=== PATIENT | female | born 1990 | race Caucasian/White ===

== ENCOUNTER 2017-11-20 13:25 | Inpatient (IN) | payer OTHER ==
[2017-11-20 14:35] LABS: ADD MAN DIFF? NO
[2017-11-20 14:36] LABS: WHITE BLOOD COUNT 11.7 10^3/ul (4.8-10.8)
[2017-11-20 14:36] LABS: BASOPHILS % 0.2 % (0.0-2.0); EOSINOPHILS # 0.3 10^3/ul (0.0-0.5); EOSINOPHILS % 2.2 % (0.0-7.0); HEMATOCRIT 31.6 % (37.0-47.0); HEMOGLOBIN 10.7 g/dl (12.0-16.0); LYMPHOCYTES # 2.9 10^3/ul (0.8-2.9); LYMPHOCYTES % 24.6 % (15.0-51.0); MEAN CORPUSCULAR HEMOGLOBIN 29.6 pg (29.0-33.0); MEAN CORPUSCULAR HGB CONC 33.9 g/dl (32.0-37.0); MEAN CORPUSCULAR VOLUME 87.3 fl (82.0-101.0); MEAN PLATELET VOLUME 9.7 fl (7.4-10.4); MONOCYTE # 0.6 10^3/ul (0.3-0.9); NEUTROPHIL # 7.9 10^3/ul (1.6-7.5); NEUTROPHILS % 67.3 % (39.0-77.0); PLATELET COUNT 324 10^3/UL (140-415); RED BLOOD COUNT 3.62 10^6/ul (4.20-5.40); RED CELL DISTRIBUTION WIDTH 13.3 % (11.5-14.5)
[2017-11-20 14:43] LABS: ADD UMIC YES; UR ASCORBIC ACID NEGATIVE (NEGATIVE); UR BILIRUBIN (Dip) NEGATIVE (NEGATIVE); UR BLOOD (Dip) 1+ mg/dL (NEGATIVE); UR CLARITY SLIGHTLY CLOUDY (CLEAR); UR COLOR YELLOW (YELLOW); UR GLUCOSE (Dip) NEGATIVE (NEGATIVE); UR KETONES (Dip) TRACE mg/dL (NEGATIVE); UR LEUKOCYTE ESTERASE (Dip) NEGATIVE Leu/ul (NEGATIVE); UR MUCUS MODERATE /HPF (NONE SEEN); UR NITRITE (Dip) NEGATIVE (NEGATIVE); UR RBC 4 /HPF (0-5); UR SPECIFIC GRAVITY (Dip) 1.024 (1.003-1.030); UR SQUAMOUS EPITHELIAL CELL FEW /HPF (FEW); UR TOTAL PROTEIN (Dip) 3+ mg/dl (NEGATIVE); UR UROBILINOGEN (Dip) NEGATIVE (NEGATIVE); UR WBC 7 /HPF (0-5)
[2017-11-20 14:55] LABS: INR 0.86; PROTIME 11.8 Sec (11.9-14.9); PT RATIO 0.9
[2017-11-20 14:56] LABS: ALANINE AMINOTRANSFERASE 36 IU/L (13-69); ALBUMIN 3.1 g/dl (3.3-4.9); ALBUMIN/GLOBULIN RATIO 0.91; ALKALINE PHOSPHATASE 95 IU/L (42-121); ANION GAP 12 (8-16); ASPARTATE AMINO TRANSFERASE 22 IU/L (15-46); BILIRUBIN,INDIRECT 0.3 mg/dl (0-1.1); BILIRUBIN,TOTAL 0.3 mg/dl (0.2-1.3); BLOOD UREA NITROGEN 13 mg/dl (7-20); CARBON DIOXIDE 20 mmol/L (21-31); CHLORIDE 109 mmol/L (97-110); CREATININE 0.66 mg/dl (0.44-1.00); GLUCOSE 119 mg/dl (70-220); PARTIAL THROMBOPLASTIN TIME 26.3 Sec (25.0-35.0); POTASSIUM 4.1 mmol/L (3.5-5.1); SODIUM 137 mmol/L (135-144); TOTAL PROTEIN 6.5 g/dl (6.1-8.1)
[2017-11-20] MEDS ORDERED: CA GLUCONATE (GM) 10% 10ML INJ IV (16:00)
[2017-11-20] MEDS: LABETALOL 200 MG TAB PO ×3 (16:25→22:26)
[2017-11-20] MEDS: BETAMET NA PHOS/AC(6 MG/ML) 5ML INJ IM (16:26)
[2017-11-20] MEDS ORDERED: GLUCOSE GEL 15 GRAM TUBE BUCCAL (16:30)
[2017-11-20] MEDS ORDERED: GLUCOSE GEL 15 GRAM TUBE PO ×2 (16:30)
[2017-11-20] MEDS ORDERED: DEXTROSE 50% 50 ML SYRINGE IV ×2 (16:30)
[2017-11-20] MEDS ORDERED: GLUCAGON 1 MG INJ IM (16:30)
[2017-11-20] MEDS: LACTATED RINGER'S 1,000 ML IV (17:31)
[2017-11-20] MEDS: MAGNESIUM SULFATE 4 GM/100 ML 100 ML IV (17:39)
[2017-11-20] MEDS: MAGNESIUM SULFATE 20 GM/500 ML 500 ML IV (18:09)
[2017-11-20] MEDS: NIFEdipine (XL) 30 MG TAB PO (20:58)
[2017-11-20] MEDS: ACCU-CHEK XX (21:09)
[2017-11-20] MEDS: INSULIN ASPART [NOVOLOG] 3 ML PEN SC (21:27)
[2017-11-20] MEDS: LABETALOL HCL 20MG INJ IV ×3 (21:31)
[2017-11-21 01:04] LABS: MAGNESIUM 4.4 mg/dl (1.7-2.5)
[2017-11-21] MEDS: LABETALOL 200 MG TAB PO ×4 (04:02→22:04)
[2017-11-21] MEDS: MAGNESIUM SULFATE 20 GM/500 ML 500 ML IV (04:06)
[2017-11-21] MEDS: LACTATED RINGER'S 1,000 ML IV ×2 (06:30→18:38)
[2017-11-21 07:19] LABS: ADD MAN DIFF? NO
[2017-11-21 07:28] LABS: MAGNESIUM 4.9 mg/dl (1.7-2.5)
[2017-11-21 07:34] LABS: BASOPHILS % 0.2 % (0.0-2.0); HEMATOCRIT 32.1 % (37.0-47.0); HEMOGLOBIN 10.9 g/dl (12.0-16.0); LYMPHOCYTES # 1.8 10^3/ul (0.8-2.9); LYMPHOCYTES % 12.5 % (15.0-51.0); MEAN CORPUSCULAR HEMOGLOBIN 29.8 pg (29.0-33.0); MEAN CORPUSCULAR VOLUME 87.7 fl (82.0-101.0); MONOCYTE # 0.3 10^3/ul (0.3-0.9); MONOCYTES % 1.9 % (0.0-11.0); NEUTROPHIL # 12.1 10^3/ul (1.6-7.5); PLATELET COUNT 331 10^3/UL (140-415); RED BLOOD COUNT 3.66 10^6/ul (4.20-5.40); RED CELL DISTRIBUTION WIDTH 13.5 % (11.5-14.5)
[2017-11-21 07:34] LABS: WHITE BLOOD COUNT 14.4 10^3/ul (4.8-10.8)
[2017-11-21] MEDS: ACCU-CHEK XX ×4 (08:00→20:29)
[2017-11-21 08:29] LABS: ALANINE AMINOTRANSFERASE 32 IU/L (13-69); ALBUMIN 3.3 g/dl (3.3-4.9); ALBUMIN/GLOBULIN RATIO 1.03; ALKALINE PHOSPHATASE 118 IU/L (42-121); ANION GAP 15 (8-16); ASPARTATE AMINO TRANSFERASE 25 IU/L (15-46); BILIRUBIN,INDIRECT 0.2 mg/dl (0-1.1); BILIRUBIN,TOTAL 0.2 mg/dl (0.2-1.3); BLOOD UREA NITROGEN 11 mg/dl (7-20); CARBON DIOXIDE 20 mmol/L (21-31); CHLORIDE 105 mmol/L (97-110); CREATININE 0.52 mg/dl (0.44-1.00); GLUCOSE 129 mg/dl (70-220); POTASSIUM 4.2 mmol/L (3.5-5.1); SODIUM 136 mmol/L (135-144); TOTAL PROTEIN 6.5 g/dl (6.1-8.1)
[2017-11-21] MEDS: ACETAMINOPHEN 325 MG TAB PO (10:05)
[2017-11-21] MEDS: BETAMET NA PHOS/AC(6 MG/ML) 5ML INJ IM (15:47)
[2017-11-21 16:09] LABS: COLLECTION PERIOD 24 hrs
[2017-11-21 16:44] LABS: VOLUME 3900 mls
[2017-11-21 16:45] LABS: COLLECTION PERIOD 24 hrs; CREATININE CLEARANCE 219.2 mls/min (84.0-162.0); CREATININE,URINE RANDOM 53.41 mg/dl (20-320); SCRET 0.66 mg/dl (0.44-1.00); VOLUME 3900 ml/24hrs
[2017-11-21] MEDS: INSULIN ASPART [NOVOLOG] 3 ML PEN SC (20:21)
[2017-11-21] MEDS: NIFEdipine (XL) 30 MG TAB PO (21:21)
[2017-11-22] MEDS: LABETALOL 200 MG TAB PO ×5 (04:06→22:07)
[2017-11-22] MEDS: ACCU-CHEK XX ×4 (06:00→20:00)
[2017-11-22] MEDS: LACTATED RINGER'S 1,000 ML IV ×2 (07:35→20:15)
[2017-11-22] MEDS: INSULIN ASPART [NOVOLOG] 3 ML PEN SC (15:08)
[2017-11-22] MEDS: NIFEdipine (XL) 30 MG TAB PO (21:00)
[2017-11-23] MEDS: LABETALOL 200 MG TAB PO ×4 (04:16→23:51)
[2017-11-23] MEDS: LACTATED RINGER'S 1,000 ML IV (09:13)
[2017-11-23] MEDS: ACCU-CHEK XX ×4 (09:35→20:15)
[2017-11-23] MEDS: NIFEdipine (XL) 30 MG TAB PO ×2 (11:29→21:22)
[2017-11-24] MEDS: LABETALOL 200 MG TAB PO ×4 (06:08→23:57)
[2017-11-24] MEDS: ACCU-CHEK XX ×4 (08:28→15:00)
[2017-11-24] MEDS: NIFEdipine (XL) 30 MG TAB PO ×2 (09:11→21:10)
[2017-11-24] MEDS: PRENATAL VITAMIN PO (11:47)
[2017-11-24] MEDS: DOCUSATE SODIUM 100 MG CAP PO ×2 (15:07→21:00)
[2017-11-24] MEDS: FERROUS SULFATE (EC) 325 MG TAB PO (21:00)
[2017-11-25] MEDS: ACCU-CHEK XX ×4 (06:00→19:59)
[2017-11-25] MEDS: LABETALOL 200 MG TAB PO ×3 (06:02→18:04)
[2017-11-25] MEDS: DOCUSATE SODIUM 100 MG CAP PO ×3 (09:25→21:18)
[2017-11-25] MEDS: FERROUS SULFATE (EC) 325 MG TAB PO ×2 (09:26→21:18)
[2017-11-25] MEDS: PRENATAL VITAMIN PO (09:26)
[2017-11-25] MEDS: NIFEdipine (XL) 30 MG TAB PO ×2 (09:26→21:18)
[2017-11-26] MEDS: LABETALOL 200 MG TAB PO ×2 (00:25→05:37)
[2017-11-26] MEDS: FERROUS SULFATE (EC) 325 MG TAB PO (08:59)
[2017-11-26] MEDS: PRENATAL VITAMIN PO (08:59)
[2017-11-26] MEDS: DOCUSATE SODIUM 100 MG CAP PO (09:00)
[2017-11-26] MEDS: NIFEdipine (XL) 30 MG TAB PO (09:21)
== END 2017-11-26 10:35 | disposition home or self-care (01) | DRG 782 ==
LOC: OBT 13:25 → L-D 13:25 → OBT 14:00 → L-D 14:00
DX: O13.2 Gestational [pregnancy-induced] hypertension without significant proteinuria, second trimester (principal); Z3A.27 27 weeks gestation of pregnancy
CPT/HCPCS: 76815; 76820; 80053; 81001; 82575; 82962; 83735; 84156; 84560; 85025; 85384; 85610; 85730

== ENCOUNTER 2017-12-05 23:07 | Inpatient (IN) | payer OTHER ==
[2017-12-05] MEDS: LACTATED RINGER'S 1,000 ML IV (23:10)
[2017-12-06] MEDS ORDERED: ACETAMINOPHEN 325 MG TAB PO (00:30)
[2017-12-06 00:53] LABS: ADD MAN DIFF? NO
[2017-12-06 00:55] LABS: BASOPHIL # 0.1 10^3/ul (0.0-0.1); BASOPHILS % 0.4 % (0.0-2.0); EOSINOPHILS # 0.3 10^3/ul (0.0-0.5); EOSINOPHILS % 1.8 % (0.0-7.0); HEMATOCRIT 32.2 % (37.0-47.0); HEMOGLOBIN 10.9 g/dl (12.0-16.0); LYMPHOCYTES # 3.2 10^3/ul (0.8-2.9); LYMPHOCYTES % 20.6 % (15.0-51.0); MEAN CORPUSCULAR HEMOGLOBIN 29.6 pg (29.0-33.0); MEAN CORPUSCULAR HGB CONC 33.9 g/dl (32.0-37.0); MEAN CORPUSCULAR VOLUME 87.5 fl (82.0-101.0); MEAN PLATELET VOLUME 10.1 fl (7.4-10.4); MONOCYTE # 1.2 10^3/ul (0.3-0.9); MONOCYTES % 7.9 % (0.0-11.0); NEUTROPHIL # 10.8 10^3/ul (1.6-7.5); NEUTROPHILS % 68.5 % (39.0-77.0); PLATELET COUNT 248 10^3/UL (140-415); RED BLOOD COUNT 3.68 10^6/ul (4.20-5.40); RED CELL DISTRIBUTION WIDTH 13.5 % (11.5-14.5)
[2017-12-06 00:55] LABS: WHITE BLOOD COUNT 15.8 10^3/ul (4.8-10.8)
[2017-12-06 01:20] LABS: ADD UMIC YES; ALANINE AMINOTRANSFERASE 61 IU/L (13-69); ALBUMIN 2.6 g/dl (3.3-4.9); ALBUMIN/GLOBULIN RATIO 0.81; ALKALINE PHOSPHATASE 133 IU/L (42-121); ANION GAP 7 (8-16); ASPARTATE AMINO TRANSFERASE 47 IU/L (15-46); BILIRUBIN,INDIRECT 0.1 mg/dl (0-1.1); BILIRUBIN,TOTAL 0.1 mg/dl (0.2-1.3); BLOOD UREA NITROGEN 20 mg/dl (7-20); CALCIUM 8.6 mg/dl (8.4-10.2); CARBON DIOXIDE 20 mmol/L (21-31); CHLORIDE 113 mmol/L (97-110); CREATININE 0.76 mg/dl (0.44-1.00); GLUCOSE 91 mg/dl (70-220); POTASSIUM 4.2 mmol/L (3.5-5.1); SODIUM 136 mmol/L (135-144); TOTAL PROTEIN 5.8 g/dl (6.1-8.1); UR ASCORBIC ACID NEGATIVE (NEGATIVE); UR BACTERIA FEW /HPF (NONE SEEN); UR BILIRUBIN (Dip) NEGATIVE (NEGATIVE); UR BLOOD (Dip) NEGATIVE (NEGATIVE); UR CLARITY CLOUDY (CLEAR); UR COLOR YELLOW (YELLOW); UR GLUCOSE (Dip) NEGATIVE (NEGATIVE); UR GRANULAR CAST FEW /HPF (NONE SEEN); UR HYALINE CAST FEW /HPF (NONE SEEN); UR KETONES (Dip) NEGATIVE (NEGATIVE); UR LEUKOCYTE ESTERASE (Dip) NEGATIVE Leu/ul (NEGATIVE); UR NITRITE (Dip) NEGATIVE (NEGATIVE); UR RBC 3 /HPF (0-5); UR SPECIFIC GRAVITY (Dip) 1.013 (1.003-1.030); UR SQUAMOUS EPITHELIAL CELL FEW /HPF (FEW); UR TOTAL PROTEIN (Dip) 3+ mg/dl (NEGATIVE); UR UROBILINOGEN (Dip) NEGATIVE (NEGATIVE); UR WBC 12 /HPF (0-5); URIC ACID 7.2 mg/dl (3.1-7.9)
[2017-12-06 01:33] LABS: INR 0.77; PROTIME 10.8 Sec (11.9-14.9); PT RATIO 0.8
[2017-12-06 01:34] LABS: PARTIAL THROMBOPLASTIN TIME 28.4 Sec (25.0-35.0)
[2017-12-06] MEDS: LACTATED RINGER'S 1,000 ML IV ×2 (04:37→09:22)
[2017-12-06] MEDS: LABETALOL 200 MG TAB PO ×3 (09:21→20:19)
[2017-12-06] MEDS: PRENATAL VITAMIN PO (09:21)
[2017-12-06] MEDS: NIFEdipine (XL) 30 MG TAB PO ×3 (09:22→22:17)
[2017-12-06] MEDS: DOCUSATE SODIUM 100 MG CAP PO (20:00)
[2017-12-07] MEDS: LACTATED RINGER'S 1,000 ML IV ×2 (04:04→21:47)
[2017-12-07] MEDS: LABETALOL 200 MG TAB PO ×4 (05:09→23:30)
[2017-12-07 05:34] LABS: COLLECTION PERIOD 24 hrs
[2017-12-07] MEDS: NIFEdipine (XL) 30 MG TAB PO ×3 (06:06→22:00)
[2017-12-07 06:49] LABS: ADD MAN DIFF? NO
[2017-12-07] MEDS ORDERED: OXYTOCIN 30 UNITS/LR 500 ML BAG IV (07:00)
[2017-12-07 07:06] LABS: BASOPHIL # 0.1 10^3/ul (0.0-0.1); BASOPHILS % 0.4 % (0.0-2.0); EOSINOPHILS # 0.2 10^3/ul (0.0-0.5); EOSINOPHILS % 1.7 % (0.0-7.0); HEMATOCRIT 33.3 % (37.0-47.0); HEMOGLOBIN 11.3 g/dl (12.0-16.0); LYMPHOCYTES # 2.7 10^3/ul (0.8-2.9); LYMPHOCYTES % 18.6 % (15.0-51.0); MEAN CORPUSCULAR HEMOGLOBIN 29.8 pg (29.0-33.0); MEAN CORPUSCULAR HGB CONC 33.9 g/dl (32.0-37.0); MEAN CORPUSCULAR VOLUME 87.9 fl (82.0-101.0); MEAN PLATELET VOLUME 9.9 fl (7.4-10.4); MONOCYTES % 7.1 % (0.0-11.0); NEUTROPHIL # 10.2 10^3/ul (1.6-7.5); NEUTROPHILS % 71.4 % (39.0-77.0); PLATELET COUNT 184 10^3/UL (140-415); RED BLOOD COUNT 3.79 10^6/ul (4.20-5.40); RED CELL DISTRIBUTION WIDTH 13.6 % (11.5-14.5)
[2017-12-07 07:06] LABS: WHITE BLOOD COUNT 14.3 10^3/ul (4.8-10.8)
[2017-12-07 07:25] LABS: ALANINE AMINOTRANSFERASE 93 IU/L (13-69); ALBUMIN 2.6 g/dl (3.3-4.9); ALBUMIN/GLOBULIN RATIO 0.86; ALKALINE PHOSPHATASE 136 IU/L (42-121); ANION GAP 9 (8-16); ASPARTATE AMINO TRANSFERASE 75 IU/L (15-46); BILIRUBIN,INDIRECT 0.4 mg/dl (0-1.1); BILIRUBIN,TOTAL 0.4 mg/dl (0.2-1.3); BLOOD UREA NITROGEN 16 mg/dl (7-20); CALCIUM 8.3 mg/dl (8.4-10.2); CARBON DIOXIDE 20 mmol/L (21-31); CHLORIDE 110 mmol/L (97-110); CREATININE 0.67 mg/dl (0.44-1.00); GLUCOSE 80 mg/dl (70-220); POTASSIUM 4.2 mmol/L (3.5-5.1); SODIUM 135 mmol/L (135-144); TOTAL PROTEIN 5.6 g/dl (6.1-8.1)
[2017-12-07 08:06] LABS: COLLECTION PERIOD 24 hrs; SCRET 0.67 mg/dl (0.44-1.00); VOLUME 2500 ml/24hrs; VOLUME 2500 mls
[2017-12-07] MEDS ORDERED: LABETALOL 200 MG TAB PO (09:00)
[2017-12-07] MEDS: DOCUSATE SODIUM 100 MG CAP PO (09:07)
[2017-12-07] MEDS: PRENATAL VITAMIN PO (09:07)
[2017-12-07 11:54] LABS: CREATININE CLEARANCE 180.4 mls/min (84.0-162.0); CREATININE,URINE RANDOM 69.61 mg/dl (20-320)
[2017-12-07] MEDS ORDERED: MAGNESIUM SULFATE 4 GM/100 ML 100 ML (16:59)
[2017-12-07] MEDS ORDERED: CEFAZOLIN 2 GM/50 ML (PMX) 50 ML IVPB (17:05)
[2017-12-07] MEDS: MAGNESIUM SULFATE 4 GM/100 ML 100 ML IV (17:10)
[2017-12-07] MEDS: MAGNESIUM SULFATE 20 GM/500 ML 500 ML IV (17:32)
[2017-12-07] MEDS: CEFAZOLIN 2 GM/50 ML (PMX) 50 ML IVPB (20:00)
[2017-12-07] MEDS ORDERED: BUPIVACAINE 0.75%/DEXT (SPINAL) 2 ML INJ (20:21)
[2017-12-07] MEDS ORDERED: FENTAnyl 50 MCG/ML VIAL (20:21)
[2017-12-07] MEDS ORDERED: morphine SULFATE/PF (10 MG/10 ML) INJ (20:21)
[2017-12-07 20:22] LABS: HEPATITIS B SURFACE ANTIBODY NEGATIVE (NEGATIVE)
[2017-12-07] MEDS ORDERED: PHENYLephrine (100 MCG/ML) 5ML SYG (20:22)
[2017-12-07] MEDS ORDERED: FAMOTIDINE 20 MG INJ (20:35)
[2017-12-07] MEDS ORDERED: ONDANSETRON 4 MG INJ (20:35)
[2017-12-07] MEDS ORDERED: OXYTOCIN 10 UNIT INJ (20:42)
[2017-12-07] MEDS ORDERED: METHYLENE BLUE 1% 10 ML INJ (21:01)
[2017-12-07] MEDS ORDERED: KETOROLAC 30 MG INJ (21:44)
[2017-12-07] MEDS: KETOROLAC 30 MG INJ IV (21:46)
[2017-12-07] MEDS ORDERED: HYDROmorphONE 0.5 MG/0.5 ML SYG IV (22:00)
[2017-12-07] MEDS ORDERED: CARBOPROST 250 MCG INJ IM (22:00)
[2017-12-07] MEDS ORDERED: LANOLIN 7 GM TUBE TOP (22:00)
[2017-12-07] MEDS ORDERED: METHYLERGONOVINE 0.2 MG TAB PO (22:00)
[2017-12-07] MEDS ORDERED: ZOLPIDEM 5 MG TAB PO (22:00)
[2017-12-07] MEDS ORDERED: MISOPROSTOL 200 MCG TAB PR (22:00)
[2017-12-07] MEDS ORDERED: METHYLERGONOVINE 0.2 MG INJ IM (22:00)
[2017-12-07] MEDS ORDERED: NALOXONE (0.4 MG/ML) INJ IV (22:00)
[2017-12-07] MEDS ORDERED: ONDANSETRON 4 MG INJ IV (22:00)
[2017-12-07] MEDS ORDERED: CEFAZOLIN 1 GM/50 ML (PMX) 50 ML IV (22:00)
[2017-12-07] MEDS ORDERED: OXYTOCIN 30 UNITS/LR 500 ML IV (22:00)
[2017-12-07] MEDS: HYDROmorphONE 0.5 MG/0.5 ML SYG IV (22:10)
[2017-12-07] MEDS: OXYTOCIN 30 UNITS/LR 500 ML IV (22:16)
[2017-12-07] MEDS: DIPHENHYDRAMINE 50 MG INJ IV (23:44)
[2017-12-08] MEDS: NIFEdipine (XL) 30 MG TAB PO ×3 (00:47→21:00)
[2017-12-08 01:10] LABS: MAGNESIUM 5.2 mg/dl (1.7-2.5)
[2017-12-08] MEDS: LACTATED RINGER'S 1,000 ML IV ×2 (02:15→06:07)
[2017-12-08] MEDS: CEFAZOLIN 1 GM/50 ML (PMX) 50 ML IVPB (04:42)
[2017-12-08] MEDS: MAGNESIUM SULFATE 20 GM/500 ML 500 ML IV ×2 (04:44→14:39)
[2017-12-08] MEDS: LABETALOL 200 MG TAB PO ×3 (06:00→22:00)
[2017-12-08 07:26] LABS: ADD MAN DIFF? NO
[2017-12-08 07:34] LABS: WHITE BLOOD COUNT 16.3 10^3/ul (4.8-10.8)
[2017-12-08 07:34] LABS: BASOPHIL # 0.1 10^3/ul (0.0-0.1); BASOPHILS % 0.4 % (0.0-2.0); EOSINOPHILS # 0.2 10^3/ul (0.0-0.5); EOSINOPHILS % 1.1 % (0.0-7.0); HEMATOCRIT 33.3 % (37.0-47.0); HEMOGLOBIN 11.2 g/dl (12.0-16.0); LYMPHOCYTES # 2.5 10^3/ul (0.8-2.9); LYMPHOCYTES % 15.3 % (15.0-51.0); MEAN CORPUSCULAR HEMOGLOBIN 29.8 pg (29.0-33.0); MEAN CORPUSCULAR HGB CONC 33.6 g/dl (32.0-37.0); MEAN CORPUSCULAR VOLUME 88.6 fl (82.0-101.0); MEAN PLATELET VOLUME 10.1 fl (7.4-10.4); MONOCYTES % 6.2 % (0.0-11.0); NEUTROPHIL # 12.5 10^3/ul (1.6-7.5); NEUTROPHILS % 76.4 % (39.0-77.0); PLATELET COUNT 159 10^3/UL (140-415); RED BLOOD COUNT 3.76 10^6/ul (4.20-5.40); RED CELL DISTRIBUTION WIDTH 13.6 % (11.5-14.5)
[2017-12-08 07:50] LABS: ANION GAP 9 (8-16); BLOOD UREA NITROGEN 14 mg/dl (7-20); CALCIUM 7.9 mg/dl (8.4-10.2); CARBON DIOXIDE 23 mmol/L (21-31); CHLORIDE 107 mmol/L (97-110); CREATININE 0.73 mg/dl (0.44-1.00); GLUCOSE 76 mg/dl (70-220); POTASSIUM 4.4 mmol/L (3.5-5.1); SODIUM 135 mmol/L (135-144)
[2017-12-08 07:56] LABS: MAGNESIUM 5.4 mg/dl (1.7-2.5)
[2017-12-08] MEDS: DOCUSATE SODIUM 100 MG CAP PO (09:03)
[2017-12-08] MEDS: PRENATAL VITAMIN PO (09:03)
[2017-12-08] MEDS: SENNA/DOCUSATE NA (8.6MG/50MG) TAB PO ×2 (09:03→21:32)
[2017-12-08 13:41] LABS: MAGNESIUM 5.5 mg/dl (1.7-2.5)
[2017-12-08] MEDS: KETOROLAC 30 MG INJ IV (14:37)
[2017-12-08 15:31] LABS: RAPID PLASMA REAGIN REACTIVE (NR)
[2017-12-08] MEDS: ACETAMINOPHEN 325 MG TAB PO (15:34)
[2017-12-08 16:42] LABS: ADD UMIC YES; UR ASCORBIC ACID NEGATIVE (NEGATIVE); UR BACTERIA FEW /HPF (NONE SEEN); UR BILIRUBIN (Dip) NEGATIVE (NEGATIVE); UR BLOOD (Dip) 2+ mg/dL (NEGATIVE); UR CLARITY CLEAR (CLEAR); UR COLOR YELLOW (YELLOW); UR GLUCOSE (Dip) NEGATIVE (NEGATIVE); UR KETONES (Dip) NEGATIVE (NEGATIVE); UR LEUKOCYTE ESTERASE (Dip) NEGATIVE Leu/ul (NEGATIVE); UR MUCUS FEW /HPF (NONE SEEN); UR NITRITE (Dip) NEGATIVE (NEGATIVE); UR RBC 3 /HPF (0-5); UR SPECIFIC GRAVITY (Dip) 1.011 (1.003-1.030); UR TOTAL PROTEIN (Dip) 2+ mg/dl (NEGATIVE); UR UROBILINOGEN (Dip) NEGATIVE (NEGATIVE); UR WBC 3 /HPF (0-5)
[2017-12-08 18:36] LABS: MAGNESIUM 5.7 mg/dl (1.7-2.5)
[2017-12-08] MEDS: HYDROCODONE/APAP (5/325) TAB PO (21:43)
[2017-12-08] MEDS ORDERED: HYDROCODONE/APAP (5/325) TAB PO (22:00)
[2017-12-09] MEDS: HYDROCODONE/APAP (5/325) TAB PO ×5 (01:25→21:00)
[2017-12-09] MEDS: IBUPROFEN 800 MG TAB PO ×2 (05:33→23:47)
[2017-12-09] MEDS: LABETALOL 200 MG TAB PO ×3 (06:00→21:55)
[2017-12-09] MEDS: DOCUSATE SODIUM 100 MG CAP PO (08:25)
[2017-12-09] MEDS: PRENATAL VITAMIN PO (08:26)
[2017-12-09] MEDS: SENNA/DOCUSATE NA (8.6MG/50MG) TAB PO ×2 (08:26→20:59)
[2017-12-09] MEDS: NIFEdipine (XL) 30 MG TAB PO ×2 (08:28→20:59)
[2017-12-10] MEDS: LACTATED RINGER'S 1,000 ML IV ×2 (07:23→21:12)
[2017-12-10] MEDS: LABETALOL 200 MG TAB PO ×3 (07:34→22:01)
[2017-12-10] MEDS: HYDROCODONE/APAP (5/325) TAB PO ×3 (07:44→21:10)
[2017-12-10] MEDS: PRENATAL VITAMIN PO (08:34)
[2017-12-10] MEDS: DOCUSATE SODIUM 100 MG CAP PO (08:34)
[2017-12-10] MEDS: SENNA/DOCUSATE NA (8.6MG/50MG) TAB PO ×2 (08:34→21:05)
[2017-12-10] MEDS: DIPHTH/TET/ACEL PERTUSS (ADULT) 0.5 ML VIAL IM* (08:35)
[2017-12-10] MEDS: NIFEdipine (XL) 30 MG TAB PO ×3 (08:35→21:05)
[2017-12-10 08:58] LABS: ADD MAN DIFF? NO
[2017-12-10 09:01] LABS: WHITE BLOOD COUNT 16.8 10^3/ul (4.8-10.8)
[2017-12-10 09:01] LABS: BASOPHIL # 0.1 10^3/ul (0.0-0.1); BASOPHILS % 0.3 % (0.0-2.0); EOSINOPHILS # 0.4 10^3/ul (0.0-0.5); EOSINOPHILS % 2.1 % (0.0-7.0); HEMATOCRIT 28.8 % (37.0-47.0); HEMOGLOBIN 9.5 g/dl (12.0-16.0); LYMPHOCYTES # 2.8 10^3/ul (0.8-2.9); LYMPHOCYTES % 16.7 % (15.0-51.0); MEAN CORPUSCULAR HEMOGLOBIN 30.6 pg (29.0-33.0); MEAN CORPUSCULAR VOLUME 92.9 fl (82.0-101.0); MONOCYTES % 5.8 % (0.0-11.0); NEUTROPHIL # 12.5 10^3/ul (1.6-7.5); PLATELET COUNT 209 10^3/UL (140-415); RED CELL DISTRIBUTION WIDTH 13.7 % (11.5-14.5)
[2017-12-10] MEDS: MEASLES,MUMPS,RUBELLA VACCINE INJ SC* (09:14)
[2017-12-10 09:24] LABS: ALANINE AMINOTRANSFERASE 76 IU/L (13-69); ALBUMIN 2.6 g/dl (3.3-4.9); ALBUMIN/GLOBULIN RATIO 0.78; ALKALINE PHOSPHATASE 127 IU/L (42-121); ANION GAP 11 (8-16); ASPARTATE AMINO TRANSFERASE 51 IU/L (15-46); BILIRUBIN,INDIRECT 0.2 mg/dl (0-1.1); BILIRUBIN,TOTAL 0.2 mg/dl (0.2-1.3); BLOOD UREA NITROGEN 11 mg/dl (7-20); CALCIUM 8.1 mg/dl (8.4-10.2); CARBON DIOXIDE 26 mmol/L (21-31); CHLORIDE 105 mmol/L (97-110); CREATININE 0.67 mg/dl (0.44-1.00); GLUCOSE 98 mg/dl (70-220); POTASSIUM 4.2 mmol/L (3.5-5.1); SODIUM 138 mmol/L (135-144); TOTAL PROTEIN 5.9 g/dl (6.1-8.1)
[2017-12-11] MEDS: LABETALOL 200 MG TAB PO (06:00)
[2017-12-11] MEDS: HYDROCODONE/APAP (5/325) TAB PO (06:15)
[2017-12-11 06:34] LABS: ADD MAN DIFF? NO
[2017-12-11 06:42] LABS: WHITE BLOOD COUNT 12.9 10^3/ul (4.8-10.8)
[2017-12-11 06:42] LABS: BASOPHILS % 0.2 % (0.0-2.0); EOSINOPHILS # 0.5 10^3/ul (0.0-0.5); EOSINOPHILS % 3.8 % (0.0-7.0); HEMATOCRIT 26.3 % (37.0-47.0); HEMOGLOBIN 8.8 g/dl (12.0-16.0); LYMPHOCYTES # 2.6 10^3/ul (0.8-2.9); LYMPHOCYTES % 20.4 % (15.0-51.0); MEAN CORPUSCULAR HEMOGLOBIN 30.6 pg (29.0-33.0); MEAN CORPUSCULAR HGB CONC 33.5 g/dl (32.0-37.0); MEAN CORPUSCULAR VOLUME 91.3 fl (82.0-101.0); MEAN PLATELET VOLUME 9.7 fl (7.4-10.4); MONOCYTE # 0.9 10^3/ul (0.3-0.9); MONOCYTES % 6.7 % (0.0-11.0); NEUTROPHIL # 8.8 10^3/ul (1.6-7.5); NEUTROPHILS % 67.9 % (39.0-77.0); PLATELET COUNT 285 10^3/UL (140-415); RED BLOOD COUNT 2.88 10^6/ul (4.20-5.40); RED CELL DISTRIBUTION WIDTH 13.4 % (11.5-14.5)
[2017-12-11 07:00] LABS: ALANINE AMINOTRANSFERASE 74 IU/L (13-69); ALBUMIN 2.6 g/dl (3.3-4.9); ALBUMIN/GLOBULIN RATIO 0.81; ALKALINE PHOSPHATASE 115 IU/L (42-121); ANION GAP 11 (8-16); ASPARTATE AMINO TRANSFERASE 51 IU/L (15-46); BILIRUBIN,INDIRECT 0.2 mg/dl (0-1.1); BILIRUBIN,TOTAL 0.2 mg/dl (0.2-1.3); BLOOD UREA NITROGEN 12 mg/dl (7-20); CALCIUM 8.5 mg/dl (8.4-10.2); CARBON DIOXIDE 25 mmol/L (21-31); CHLORIDE 106 mmol/L (97-110); CREATININE 0.63 mg/dl (0.44-1.00); GLUCOSE 96 mg/dl (70-220); POTASSIUM 4.1 mmol/L (3.5-5.1); SODIUM 138 mmol/L (135-144); TOTAL PROTEIN 5.8 g/dl (6.1-8.1)
[2017-12-11] MEDS: NIFEdipine (XL) 30 MG TAB PO (08:54)
[2017-12-11] MEDS: SENNA/DOCUSATE NA (8.6MG/50MG) TAB PO (09:03)
[2017-12-11] MEDS: PRENATAL VITAMIN PO (09:03)
[2017-12-11] MEDS: DOCUSATE SODIUM 100 MG CAP PO (09:03)
[2017-12-11] MEDS: IBUPROFEN 800 MG TAB PO (12:43)
[2017-12-12 16:51] LABS: FLUORESCENT TREPONEMAL AB NON-REACTIVE (NON-REACTIVE)
== END 2017-12-11 13:00 | disposition home or self-care (01) | DRG 765 ==
LOC: OBT 23:07 → PP1 12-08 01:09 → L-D 23:09
PROC: 10D00Z1 Extraction of Products of Conception, Low, Open Approach (ICD-10-PCS; principal; 2017-12-07 18:15)
PROC: 3E033VJ Introduction of Other Hormone into Peripheral Vein, Percutaneous Approach (ICD-10-PCS; 2017-12-07 18:15)
DX: O60.14X0 Preterm labor third trimester with preterm delivery third trimester, not applicable or unspecified (principal); O10.92 Unspecified pre-existing hypertension complicating childbirth; Z68.41 Body mass index [BMI] 40.0-44.9, adult; O34.211 Maternal care for low transverse scar from previous cesarean delivery; O13.4 Gestational [pregnancy-induced] hypertension without significant proteinuria, complicating childbirth; O99.214 Obesity complicating childbirth; E66.9 Obesity, unspecified; Z37.0 Single live birth; Z3A.29 29 weeks gestation of pregnancy
CPT/HCPCS: 76818; 80048; 80053; 81001; 82575; 82962; 83735; 84156; 84560; 85025; 85384; 85610; 85730; 86592; 86706; 86850; 86900; 86901; 87086; 88307; 96360; 99464